=== PATIENT | male | born 1955 ===

== ENCOUNTER → 2016-10-02 | Outpatient (CLI) | payer BC, OTHER ==
[2016-10-02 14:05] LABS: ESTIMATED AVERAGE GLUCOSE 174 mg/dl; HA1C FLAG Normal (Normal)
== END | disposition home or self-care (01) ==
LOC: C.LABMFLN 08:13
PROVIDERS: ATTEND Physician Assistant
DX: E11.9 Type 2 diabetes mellitus without complications (principal)